=== PATIENT | female | born 1950 | race Caucasian/White ===

== ENCOUNTER 2024-09-03 14:45 | Inpatient (IN) | payer MEDICARE, OTHER ==
[~2024-09-03] VITALS: Ht 160 cm; Wt 70.8 kg
[2024-09-03 15:47] LABS: BASOPHILS % (AUTO) 0.2 % (0.0-2.0); EOSINOPHILS % (AUTO) 0.1 % (0.0-6.0); HEMATOCRIT 37 % (33-45); HEMOGLOBIN 12.1 g/dL (11.5-14.8); LYMPHOCYTES # (AUTO) 1.3 K/uL (0.8-4.8); LYMPHOCYTES % (AUTO) 10.1 % (20.0-44.0); MEAN CORPUSCULAR HEMOGLOBIN 27 PG (26.0-33.0); MEAN CORPUSCULAR HGB CONC 33 g/dl (31.0-36.0); MEAN CORPUSCULAR VOLUME 83 fL (82-100); MONOCYTES # (AUTO) 1.1 K/uL (0.1-1.30); MONOCYTES % (AUTO) 8.3 % (2.0-12.0); NEUTROPHILS # (AUTO) 10.3 K/uL (1.8-8.9); NEUTROPHILS % (AUTO) 81.3 % (43.0-81.0); PLATELET COUNT (AUTO) 354 K/uL (150-450); RED BLOOD CELL COUNT(AUTO) 4.44 MIL/uL (4.0-5.2); RED CELL DISTRIBUTION WIDTH 15.3 % (11.5-15.0); WHITE BLOOD COUNT (AUTO) 12.7 K/uL (4.3-11.0)
[2024-09-03 15:55] LABS: INR 1.08 (0.91-1.10); PARTIAL THROMBOPLASTIN TIME 27.9 SEC (24.3-34.3); PROTHROMBIN TIME 11.4 SECS (9.2-11.1)
[2024-09-03] MEDS ORDERED: ACETAMINOPHEN 325 MG TABLET ONE (15:57)
[2024-09-03 16:02] LABS: LACTIC ACID 1.4 mmol/L (0.4-2.0)
[2024-09-03] MEDS: CEFEPIME 2 GM in IV D5W 50 ML IV ONE (16:05)
[2024-09-03 16:07] LABS: CALCIUM, SERUM 9.5 mg/dL (8.5-10.1); CREATININE 0.7 mg/dL (0.6-1.3); POTASSIUM 4.2 mmol/L (3.5-5.1)
[2024-09-03 16:11] LABS: ALBUMIN 2.2 g/dL (3.4-5.0); BILIRUBIN,DIRECT 0.2 mg/dL (0.0-0.2); BILIRUBIN,TOTAL 0.5 mg/dL (0.2-1.0); TOTAL PROTEIN, SERUM 7.6 g/dL (6.4-8.2)
[2024-09-03] MEDS: ACETAMINOPHEN 325 MG TABLET PO ONE (16:20)
[2024-09-03] MEDS: VANCOMYCIN 1 GM in IV D5W 250 ML IV ONE (16:26)
[2024-09-03 16:42] LABS: APPEARANCE,URINE CLEAR (CLEAR); BILIRUBIN,URINE NEGATIVE (NEGATIVE); BLOOD, URINE NEGATIVE Ery/uL (NEGATIVE); COLOR,URINE YELLOW (YELLOW); KETONES,URINE NEGATIVE (NEGATIVE); LEUKOCYTE ESTERASE ,URINE NEGATIVE (NEGATIVE); NITRITE, URINE NEGATIVE (NEGATIVE); PH,URINE 5.5 (5.0-8.0); PROTEIN,URINE 2+ mg/dl (NEGATIVE); UGLUCOSE 1+ mg/dL (NEGATIVE); UROBILINOGEN,URINE 0.2 EU/dL (0.2)
[2024-09-03 16:43] LABS: ADD URINE CULTURE NO; BACTERIA,URINE Few /HPF (None Seen); RBC,URINE 0-2 /HPF (0-2); SQUAMOUS EPITHELIAL CELL,UR Few /HPF (None Seen)
[2024-09-03] MEDS ORDERED: ALEN70SO3 GT (17:00)
[2024-09-03] MEDS ORDERED: INSULIN GLARGINE-YF SQ (17:00)
[2024-09-03] MEDS ORDERED: [UNRECOGNIZED DRUG - CODE] GT (17:00)
[2024-09-03] MEDS ORDERED: FAMO-131 GT (17:00)
[2024-09-03] MEDS ORDERED: NA P133E RC (17:00)
[2024-09-03] MEDS ORDERED: BISA10SU11 RC (17:00)
[2024-09-03] MEDS ORDERED: AMLO5TAB4 GT (17:00)
[2024-09-03] MEDS ORDERED: CALC355O18 GT (17:00)
[2024-09-03] MEDS ORDERED: ATOR10TA GT (17:00)
[2024-09-03] MEDS ORDERED: ASPI-1169 GT (17:00)
[2024-09-03] MEDS ORDERED: INSU100I4 SQ (17:00)
[2024-09-03] MEDS ORDERED: CHOL100043 GT (17:00)
[2024-09-03] MEDS ORDERED: DULO20CA GT (17:00)
[2024-09-03] MEDS ORDERED: AMAN100T GT (17:00)
[2024-09-03] MEDS ORDERED: ACET-868 GT (17:00)
[2024-09-03] MEDS ORDERED: METO25TA6 GT (17:00)
[2024-09-03] MEDS ORDERED: MULT-213 GT (17:00)
[2024-09-03] MEDS ORDERED: MAGN400O6 GT (17:00)
[2024-09-03] MEDS ORDERED: LISI20TA30 GT (17:00)
[2024-09-03] MEDS ORDERED: OMEG1CAP GT (17:00)
[2024-09-03] MEDS ORDERED: NUT.237L30 GT (17:00)
[2024-09-03] MEDS: IV NS 0.9% 500 ML BAG IV ONE (17:21)
[2024-09-03] MEDS ORDERED: Z GUARD REMEDY 4 OZ OINT TP PRN (18:00)
[2024-09-03] MEDS ORDERED: MAG HYDROX/AL HYDROX/SIMETH 30 ML UDC PO PRN (18:00)
[2024-09-03] MEDS ORDERED: MAGNESIUM HYDROXIDE 30 ML UDC PO PRN (18:00)
[2024-09-03] MEDS ORDERED: ACETAMINOPHEN 325 MG TABLET PO PRN (18:00)
[2024-09-03] MEDS ORDERED: ONDANSETRON HCL/PF 4 MG/2 ML VIAL IVP PRN (18:00)
[2024-09-03 21:41] VITALS: BP 121/84; TEMP 97.7; O2SAT 99
[2024-09-04] MEDS: CEFEPIME 2 GM in IV D5W 100 ML IV SCH (05:06)
[2024-09-04] MEDS ORDERED: CEFEPIME 1 GM VIAL ONE (05:24)
[2024-09-04] MEDS: VANCOMYCIN 750 MG in IV D5W 250 ML IV SCH (05:44)
[2024-09-04 07:58] LABS: BASOPHILS % (AUTO) 0.2 % (0.0-2.0); EOSINOPHILS # (AUTO) 0.1 K/uL (0.0-0.7); EOSINOPHILS % (AUTO) 0.6 % (0.0-6.0); HEMATOCRIT 36 % (33-45); HEMOGLOBIN 11.6 g/dL (11.5-14.8); LYMPHOCYTES # (AUTO) 1.9 K/uL (0.8-4.8); LYMPHOCYTES % (AUTO) 13.9 % (20.0-44.0); MEAN CORPUSCULAR HEMOGLOBIN 28 PG (26.0-33.0); MEAN CORPUSCULAR HGB CONC 32 g/dl (31.0-36.0); MEAN CORPUSCULAR VOLUME 86 fL (82-100); MONOCYTES # (AUTO) 1.3 K/uL (0.1-1.30); MONOCYTES % (AUTO) 9.2 % (2.0-12.0); NEUTROPHILS # (AUTO) 10.5 K/uL (1.8-8.9); NEUTROPHILS % (AUTO) 76.1 % (43.0-81.0); PLATELET COUNT (AUTO) 347 K/uL (150-450); RED CELL DISTRIBUTION WIDTH 15.4 % (11.5-15.0); WHITE BLOOD COUNT (AUTO) 13.8 K/uL (4.3-11.0)
[2024-09-04 07:59] LABS: CALCIUM, SERUM 8.5 mg/dL (8.5-10.1); CREATININE 0.7 mg/dL (0.6-1.3); MAGNESIUM 2.4 mg/dL (1.8-2.4); PHOSPHORUS 3.9 mg/dL (2.5-4.9); POTASSIUM 4.4 mmol/L (3.5-5.1)
[2024-09-04 10:45] LABS: LYMPHOCYTES % (MANUAL) 14 % (16-48); MONOCYTES % (MANUAL) 9 % (0-11.0); MYELOCYTES % 3 % (0-0); NEUTROPHILS % (MANUAL) 74 (42-76); PLATELET ESTIMATE ADEQUATE
[2024-09-04] MEDS: THERAHONEY GEL 1.5 OZ TUBE TP SCH (11:37)
[2024-09-04] MEDS: GLUCERNA 1.2 1,000 ML BOTTLE NG PRN (12:02)
[2024-09-04] MEDS: ENOXAPARIN SODIUM 30 MG/0.3 ML DISP.SYRIN SQ SCH (17:07)
[2024-09-04 20:00] VITALS: BP 116/84; TEMP 99; O2SAT 93
[2024-09-05 03:52] LABS: BASOPHILS % (AUTO) 0.2 % (0.0-2.0); EOSINOPHILS # (AUTO) 0.1 K/uL (0.0-0.7); EOSINOPHILS % (AUTO) 0.7 % (0.0-6.0); HEMATOCRIT 35 % (33-45); HEMOGLOBIN 11.3 g/dL (11.5-14.8); LYMPHOCYTES # (AUTO) 1.3 K/uL (0.8-4.8); LYMPHOCYTES % (AUTO) 11.1 % (20.0-44.0); MEAN CORPUSCULAR HEMOGLOBIN 28 PG (26.0-33.0); MEAN CORPUSCULAR HGB CONC 33 g/dl (31.0-36.0); MEAN CORPUSCULAR VOLUME 84 fL (82-100); MONOCYTES # (AUTO) 0.7 K/uL (0.1-1.30); MONOCYTES % (AUTO) 5.7 % (2.0-12.0); NEUTROPHILS # (AUTO) 9.8 K/uL (1.8-8.9); NEUTROPHILS % (AUTO) 82.3 % (43.0-81.0); PLATELET COUNT (AUTO) 399 K/uL (150-450); RED BLOOD CELL COUNT(AUTO) 4.09 MIL/uL (4.0-5.2); RED CELL DISTRIBUTION WIDTH 14.8 % (11.5-15.0); WHITE BLOOD COUNT (AUTO) 11.9 K/uL (4.3-11.0)
[2024-09-05 04:02] LABS: CALCIUM, SERUM 9.3 mg/dL (8.5-10.1); CREATININE 0.7 mg/dL (0.6-1.3); POTASSIUM 3.7 mmol/L (3.5-5.1)
[2024-09-05 06:52] LABS: BASOPHILS % (MANUAL) 0 % (0.0-2.0); EOSINOPHILS % (MANUAL) 1 % (0-4); LYMPHOCYTES % (MANUAL) 15 % (16-48); MONOCYTES % (MANUAL) 5 % (0-11.0); NEUTROPHILS % (MANUAL) 79 (42-76); PLATELET ESTIMATE ADEQUATE
[2024-09-05 08:00] VITALS: BP 119/77; TEMP 98.1; O2SAT 93
[2024-09-05] MEDS ORDERED: BISACODYL SUPP (10 MG) 10 MG/SUPP.RECT SUPP.RECT RC PRN (12:00)
[2024-09-05] MEDS ORDERED: NA PHOS,M-B/NA PHOS,DI-BA 1 EA ENEMA RC PRN (12:00)
[2024-09-05] MEDS: DULOXETINE HCL 20 MG CAPSULE.DR GT SCH (12:08)
[2024-09-05 17:00] VITALS: BP 146/90; TEMP 98.1; O2SAT 94
[2024-09-05] MEDS: AMLODIPINE BESYLATE 5 MG TABLET GT SCH (17:46)
[2024-09-05 20:00] VITALS: BP 131/87; TEMP 97.5; O2SAT 96
[2024-09-05] MEDS: VANCOMYCIN HCL 1.25 GM in IV D5W 250 ML IV SCH (20:57)
[2024-09-06 07:33] LABS: BASOPHILS % (AUTO) 0.2 % (0.0-2.0); EOSINOPHILS # (AUTO) 0.2 K/uL (0.0-0.7); EOSINOPHILS % (AUTO) 1.7 % (0.0-6.0); HEMATOCRIT 32 % (33-45); HEMOGLOBIN 10.4 g/dL (11.5-14.8); MEAN CORPUSCULAR HEMOGLOBIN 28 PG (26.0-33.0); MEAN CORPUSCULAR HGB CONC 33 g/dl (31.0-36.0); MEAN CORPUSCULAR VOLUME 84 fL (82-100); MONOCYTES # (AUTO) 0.8 K/uL (0.1-1.30); MONOCYTES % (AUTO) 5.9 % (2.0-12.0); NEUTROPHILS # (AUTO) 11.1 K/uL (1.8-8.9); NEUTROPHILS % (AUTO) 84.2 % (43.0-81.0); PLATELET COUNT (AUTO) 440 K/uL (150-450); RED BLOOD CELL COUNT(AUTO) 3.79 MIL/uL (4.0-5.2); WHITE BLOOD COUNT (AUTO) 13.1 K/uL (4.3-11.0)
[2024-09-06 07:38] LABS: CALCIUM, SERUM 9.4 mg/dL (8.5-10.1); CREATININE 0.7 mg/dL (0.6-1.3); POTASSIUM 3.3 mmol/L (3.5-5.1)
[2024-09-06 08:00] VITALS: BP 153/87; TEMP 98.2; O2SAT 96
[2024-09-06] MEDS: METOPROLOL TARTRATE 25 MG TABLET GT SCH (09:28)
[2024-09-06] MEDS: AMANTADINE HCL 100 MG CAPSULE GT SCH (09:28)
[2024-09-06] MEDS: ASPIRIN 81 MG TAB.CHEW GT SCH (09:28)
[2024-09-06] MEDS: FAMOTIDINE (20 MG) 20 MG TABLET GT SCH (09:28)
[2024-09-06] MEDS: LISINOPRIL (20MG) 20 MG TABLET GT SCH (09:29)
[2024-09-06] MEDS: POTASSIUM CHLORIDE 20 MEQ POWDER PACKET NG SCH (09:35)
[2024-09-06 16:00] VITALS: BP 143/76; TEMP 98.2; O2SAT 96
[2024-09-06] MEDS ORDERED: DEXTROSE 50%-WATER 50 ML DISP.SYRIN IV PRN (17:30)
[2024-09-06] MEDS: BLOOD SUGAR DIAGNOSTIC 1 EACH STRIP IN SCH (17:50)
[2024-09-06] MEDS: BLOOD SUGAR DIAGNOSTIC 1 EACH STRIP VI SCH (17:50)
[2024-09-06 20:00] VITALS: BP 132/77; TEMP 97.9; O2SAT 99
[2024-09-06] MEDS: *INSULIN REGULAR(HUMULIN R)HUM 100 UNIT/ML VIAL SQ PRN (22:12)
[2024-09-07] MEDS: INSULIN REGULAR, HUMAN 100 UNIT/ML 3 ML VIAL SQ PRN (06:37)
[2024-09-07 07:50] LABS: CALCIUM, SERUM 8.8 mg/dL (8.5-10.1); CREATININE 0.7 mg/dL (0.6-1.3); POTASSIUM 3.8 mmol/L (3.5-5.1)
[2024-09-07 08:00] VITALS: BP 128/87; TEMP 97.7; O2SAT 93
[2024-09-07 20:00] VITALS: BP 139/88; TEMP 97.5; O2SAT 95
[2024-09-08 02:41] VITALS: BP 139/88; TEMP 97.5; O2SAT 95
[2024-09-08 07:22] LABS: BASOPHILS % (AUTO) 0.1 % (0.0-2.0); EOSINOPHILS # (AUTO) 0.1 K/uL (0.0-0.7); EOSINOPHILS % (AUTO) 1.2 % (0.0-6.0); HEMATOCRIT 33 % (33-45); HEMOGLOBIN 11.2 g/dL (11.5-14.8); LYMPHOCYTES # (AUTO) 1.6 K/uL (0.8-4.8); LYMPHOCYTES % (AUTO) 13.9 % (20.0-44.0); MEAN CORPUSCULAR HEMOGLOBIN 29 PG (26.0-33.0); MEAN CORPUSCULAR HGB CONC 34 g/dl (31.0-36.0); MEAN CORPUSCULAR VOLUME 85 fL (82-100); MONOCYTES # (AUTO) 0.7 K/uL (0.1-1.30); MONOCYTES % (AUTO) 5.7 % (2.0-12.0); NEUTROPHILS # (AUTO) 9.2 K/uL (1.8-8.9); NEUTROPHILS % (AUTO) 79.1 % (43.0-81.0); PLATELET COUNT (AUTO) 457 K/uL (150-450); RED BLOOD CELL COUNT(AUTO) 3.93 MIL/uL (4.0-5.2); RED CELL DISTRIBUTION WIDTH 14.6 % (11.5-15.0); WHITE BLOOD COUNT (AUTO) 11.7 K/uL (4.3-11.0)
[2024-09-08 08:01] LABS: CALCIUM, SERUM 9.2 mg/dL (8.5-10.1); CREATININE 0.5 mg/dL (0.6-1.3); POTASSIUM 3.9 mmol/L (3.5-5.1)
[2024-09-08 08:48] VITALS: BP 124/90
[2024-09-08 08:54] LABS: EOSINOPHILS % (MANUAL) 2 % (0-4); LYMPHOCYTES % (MANUAL) 11 % (16-48); MONOCYTES % (MANUAL) 7 % (0-11.0); MYELOCYTES % 1 % (0-0); NEUTROPHILS % (MANUAL) 79 (42-76); PLATELET ESTIMATE INCREASED; STOMATOCYTES 1+
[2024-09-08] MEDS ORDERED: ENOX30DI SQ (09:16)
[2024-09-08] MEDS ORDERED: CEFE2FRO IV (09:16)
[2024-09-08] MEDS: VANCOMYCIN 500 MG in IV D5W 100ml IV SCH (10:25)
== END 2024-09-08 17:55 | DRG 177 ==
LOC: ER 14:46 → TELE 21:11 → MED 22:21
PROVIDERS: ADMIT Internal Medicine; ATTEND Internal Medicine
DX: J15.69 Pneumonia due to other Gram-negative bacteria (principal); G93.41 Metabolic encephalopathy; J96.01 Acute respiratory failure with hypoxia; E44.0 Moderate protein-calorie malnutrition; F03.93 Unspecified dementia, unspecified severity, with mood disturbance; J98.11 Atelectasis; J90 Pleural effusion, not elsewhere classified; F03.90 Unspecified dementia, unspecified severity, without behavioral disturbance, psychotic disturbance, mood disturbance, and anxiety; Z20.822 Contact with and (suspected) exposure to COVID-19; Z93.1 Gastrostomy status; F32.A Depression, unspecified; F41.9 Anxiety disorder, unspecified; R53.1 Weakness; Z79.4 Long term (current) use of insulin; Z79.82 Long term (current) use of aspirin; Z79.83 Long term (current) use of bisphosphonates; I10 Essential (primary) hypertension; F32.9 Major depressive disorder, single episode, unspecified; E88.09 Other disorders of plasma-protein metabolism, not elsewhere classified; E11.9 Type 2 diabetes mellitus without complications; R13.10 Dysphagia, unspecified; Z86.73 Personal history of transient ischemic attack (TIA), and cerebral infarction without residual deficits
CPT/HCPCS: 36415; 71045-TC; 80048-TC; 80076-TC; 80202-TC; 81001; 82962-TC; 83605-TC; 83735-TC; 83880; 84100-TC; 84484-TC; 85025-TC; 85730-TC; 87040-TC; 87086-TC; A4223; A6403; G0378; J0692; J1650; J1815; J3370; J3371; J7050; J7060